=== PATIENT | female | born 1990 | race Caucasian/White ===

== ENCOUNTER 2016-09-06 14:18 | Emergency (ER) | payer OTHER ==
[~2016-09-06] VITALS: Ht 160 cm; Wt 77.1 kg
[2016-09-06 14:55] VITALS: BP_SYST 123
[2016-09-06] MEDS ORDERED: ONDANSETRON HCL 4 MG/2 ML VIAL IVP ONE (15:30)
[2016-09-06] MEDS ORDERED: NACL 0.9% 1,000 ML IV ONE (15:30)
[2016-09-06] MEDS ORDERED: KETOROLAC TROMETHAMINE 30 MG VIAL IVP ONE (15:30)
[2016-09-06 15:42] LABS: BLOOD, URINE 3+ (NEGATIVE); CLARITY/URINE CLOUDY (CLEAR); GLUCOSE,URINE TRACE (NEGATIVE); KETONES,URINE 1+ (NEGATIVE); LEUKOCYTE ESTERASE ,URINE 1+ (NEGATIVE); NITRITE, URINE POSITIVE (NEGATIVE); PH,URINE 6.5 (5.0-8.0); PROTEIN URINE 3+ (NEGATIVE)
[2016-09-06 15:53] LABS: BILIRUBIN,URINE NEGATIVE (NEGATIVE)
[2016-09-06 15:57] LABS: COLOR,URINE RED (YELLOW)
[2016-09-06 16:26] LABS: MEAN CORPUSCULAR VOLUME 82 fL (79.0-98.0); WHITE BLOOD COUNT (AUTO) 4.4 K/uL (4.8-10.8)
[2016-09-06 16:28] LABS: RBC,URINE >100 /HPF (0-3)
[2016-09-06 16:29] LABS: BACTERIA,URINE MODERATE /HPF (None Seen); MUCUS,URINE None Seen /LPF (None Seen); URINE AMORPHOUS URATE 2+ /HPF (None Seen)
[2016-09-06 16:33] LABS: BASOPHILS % (AUTO) 0.6 % (0.0-2.0); EOSINOPHILS % (AUTO) 0.8 % (0.0-4.0); HEMATOCRIT 36.8 % (36-48); HEMOGLOBIN 12.8 g/dL (12.0-16.0); LYMPHOCYTES # (AUTO) 0.7 K/uL (1.0-5.5); LYMPHOCYTES % (AUTO) 16.7 % (20.5-51.5); MEAN CORPUSCULAR HEMOGLOBIN 29 pg (27-31); MEAN CORPUSCULAR HGB CONC 35 % (32-36); MONOCYTES # (AUTO) 0.4 K/uL (0.0-1.0); MONOCYTES % (AUTO) 9.5 % (1.7-9.3); NEUTROPHILS # (AUTO) 3.3 K/uL (1.8-7.7); NEUTROPHILS % (AUTO) 72.4 % (40.0-70.0); PLATELET COUNT (AUTO) 189 K/uL (130-430); RED BLOOD CELL COUNT(AUTO) 4.49 MIL/uL (4.2-6.2); RED CELL DISTRIBUTION WIDTH 12.2 % (9.0-15.0)
[2016-09-06 16:39] LABS: CALCIUM 9.2 mg/dL (8.4-11.0); CREATININE 0.5 mg/dL (0.55-1.30); POTASSIUM 3.5 mmol/L (3.5-5.1)
[2016-09-06 16:44] LABS: ALBUMIN 3.1 g/dL (3.4-4.8); TOTAL BILIRUBIN 0.4 mg/dL (0.0-1.0); TOTAL PROTEIN, SERUM 6.6 g/dL (6.4-8.3)
[2016-09-06] MEDS ORDERED: cefTRIAXone 1 GM IVPB PREMIX 50 ML IV ONE (16:45)
[2016-09-06 17:46] VITALS: BP_SYST 123
== END 2016-09-06 17:46 | disposition home or self-care (01) ==
LOC: SED 14:18
DX: N10 Acute pyelonephritis (principal); R51 Headache
CPT/HCPCS: 36415; 72131; 80053; 81000; 81025; 83690; 85025; 86710; 87086; 96361; 96365; 96375; 99285; J0696; J1885; J2405

== ENCOUNTER 2017-08-23 21:12 | Emergency (ER) | payer OTHER ==
[~2017-08-23] VITALS: Ht 160 cm; Wt 81.6 kg
--- NOTE | 2017-08-23 21:12 | NUR ---
EKG done during triage per chest pain protocol and shown to Dr. Veliz.
[2017-08-23 21:25] VITALS: BP_SYST 137
--- NOTE | 2017-08-23 22:28 | NUR ---
CALLED PT TO BE PLACED IN BED AND NO ANSWER
--- NOTE | 2017-08-23 22:54 | NUR ---
CALLED PT TO BE PLACED IN BED AND NO ANSWER
--- NOTE | 2017-08-23 23:20 | NUR ---
CALLED PT TO BE PLACED IN BED AND NO ANSWER FOR THE 3RD TIME. PT LWBS
== END 2017-08-23 23:20 | disposition left against medical advice (07) ==
LOC: SED 21:12
DX: R07.89 Other chest pain (principal); Z53.21 Procedure and treatment not carried out due to patient leaving prior to being seen by health care provider
CPT/HCPCS: 93005; 99281

== ENCOUNTER 2017-08-24 11:05 | Emergency (ER) | payer OTHER ==
[~2017-08-24] VITALS: Ht 160 cm; Wt 81.6 kg
[2017-08-24 11:22] VITALS: BP_SYST 114
--- NOTE | 2017-08-24 11:28 | NUR ---
EKG done in triage room, results given to Dr. Calles.
--- NOTE | 2017-08-24 12:40 | NUR ---
Off unit for xray, pt has not provided urine. States that she is not and consents to be shielded. Notified of risks for fetus, verbalized understanding.
[2017-08-24 12:41] LABS: BASOPHILS % (AUTO) 0.5 % (0.0-2.0); EOSINOPHILS # (AUTO) 0.3 K/uL (0.0-0.4); EOSINOPHILS % (AUTO) 4.6 % (0.0-4.0); HEMATOCRIT 43.2 % (36-48); LYMPHOCYTES # (AUTO) 1.6 K/uL (1.0-5.5); LYMPHOCYTES % (AUTO) 25.4 % (20.5-51.5); MEAN CORPUSCULAR HEMOGLOBIN 28 pg (27-31); MEAN CORPUSCULAR HGB CONC 32 % (32-36); MEAN CORPUSCULAR VOLUME 85 fL (79.0-98.0); MONOCYTES # (AUTO) 0.4 K/uL (0.0-1.0); MONOCYTES % (AUTO) 6.7 % (1.7-9.3); NEUTROPHILS # (AUTO) 3.9 K/uL (1.8-7.7); NEUTROPHILS % (AUTO) 62.8 % (40.0-70.0); PLATELET COUNT (AUTO) 328 K/uL (130-430); RED BLOOD CELL COUNT(AUTO) 5.09 MIL/uL (4.2-6.2); RED CELL DISTRIBUTION WIDTH 11.7 % (9.0-15.0); WHITE BLOOD COUNT (AUTO) 6.2 K/uL (4.8-10.8)
[2017-08-24 12:47] LABS: CALCIUM 10.8 mg/dL (8.4-11.0); CREATININE 0.57 mg/dL (0.55-1.30); POTASSIUM 3.8 mmol/L (3.5-5.1)
[2017-08-24 12:51] LABS: ALBUMIN 3.7 g/dL (3.4-4.8); TOTAL BILIRUBIN 0.5 mg/dL (0.0-1.0)
--- NOTE | 2017-08-24 13:48 | NUR ---
Placed in room 6. Placed on monitor worker, blood pressure machine and pulse oximeter. To gown for exam. Side rails up. Report given to Omid.
--- NOTE | 2017-08-24 13:50 | NUR ---
Pt presents to ER c/o intermittent L chest pain rated 4/10 per pt. Pt denies that pain radiates elsewhere, denies N/V/SOB. Pt shows no sign of acute distress, pt is not diaphoretic, respirations even and unlabored, speaking full sentences, AOX4, NKDA.
--- NOTE | 2017-08-24 14:00 | NUR ---
ER at bedside examining patient.
[2017-08-24 14:19] LABS: BILIRUBIN,URINE NEGATIVE (NEGATIVE); BLOOD, URINE 3+ (NEGATIVE); CLARITY/URINE HAZY (CLEAR); COLOR,URINE YELLOW (YELLOW); GLUCOSE,URINE NEGATIVE (NEGATIVE); KETONES,URINE NEGATIVE (NEGATIVE); LEUKOCYTE ESTERASE ,URINE NEGATIVE (NEGATIVE); NITRITE, URINE NEGATIVE (NEGATIVE); PH,URINE 6.5 (5.0-8.0); PROTEIN URINE NEGATIVE (NEGATIVE); UROBILINOGEN,URINE 0.2 (0.2-1.0)
[2017-08-24 14:30] LABS: BACTERIA,URINE FEW /HPF (None Seen); URINE AMORPHOUS PHOSPHATES 2+ /HPF (None Seen); WBC,URINE 0-3 /HPF (0-3)
[2017-08-24] MEDS ORDERED: ASPIRIN 81 MG TAB.CHEW PO ONE (14:45)
--- NOTE | 2017-08-24 14:55 | NUR ---
Dr. Calles at bedside speaking with pt on lab and diagnostic results.
[2017-08-24 15:02] VITALS: BP_SYST 121
--- NOTE | 2017-08-24 15:02 | NUR ---
Patient given written and verbal discharge instructions and verbalizes understanding. ER MD discussed with patient the results and treatment provided. Patient in stable condition. ID arm band removed. Rx of Motrin given. Patient educated on pain management and to follow up with PMD. Pain Scale 0/10. Opportunity for questions provided and answered. Medication side effect fact sheet provided.
== END 2017-08-24 15:02 | disposition home or self-care (01) ==
LOC: SED 11:05
DX: M94.0 Chondrocostal junction syndrome [Tietze] (principal)
CPT/HCPCS: 36415; 71045; 80053; 81000-TC; 84484; 85025; 93005; 99285

== ENCOUNTER 2017-09-22 12:58 | Emergency (ER) | payer OTHER ==
[~2017-09-22] VITALS: Ht 160 cm; Wt 81.2 kg
[2017-09-22 13:09] VITALS: BP_SYST 148
[2017-09-22 13:44] LABS: BILIRUBIN,URINE NEGATIVE (NEGATIVE); BLOOD, URINE 3+ (NEGATIVE); CLARITY/URINE CLEAR (CLEAR); COLOR,URINE YELLOW (YELLOW); GLUCOSE,URINE NEGATIVE (NEGATIVE); KETONES,URINE NEGATIVE (NEGATIVE); LEUKOCYTE ESTERASE ,URINE NEGATIVE (NEGATIVE); NITRITE, URINE NEGATIVE (NEGATIVE); PROTEIN URINE 1+ (NEGATIVE)
[2017-09-22 13:54] LABS: CALCIUM 11.1 mg/dL (8.4-11.0); CREATININE 0.65 mg/dL (0.55-1.30); POTASSIUM 3.8 mmol/L (3.5-5.1)
[2017-09-22 14:00] LABS: ALBUMIN 3.8 g/dL (3.4-4.8); TOTAL BILIRUBIN 0.4 mg/dL (0.0-1.0)
[2017-09-22] MEDS ORDERED: KETOROLAC TROMETHAMINE 60 MG/2 ML VIAL IM ONE (14:00)
[2017-09-22] MEDS ORDERED: DEXAMETHASONE SOD PHOSPHATE 10 MG/ML VIAL IM ONE (14:00)
[2017-09-22 14:01] LABS: HEMATOCRIT 44.4 % (36-48); HEMOGLOBIN 14.4 g/dL (12.0-16.0); MEAN CORPUSCULAR HEMOGLOBIN 28 pg (27-31); MEAN CORPUSCULAR HGB CONC 33 % (32-36); MEAN CORPUSCULAR VOLUME 85 fL (79.0-98.0); PLATELET COUNT (AUTO) 293 K/uL (130-430); RED BLOOD CELL COUNT(AUTO) 5.23 MIL/uL (4.2-6.2); RED CELL DISTRIBUTION WIDTH 11.7 % (9.0-15.0); WHITE BLOOD COUNT (AUTO) 12.8 K/uL (4.8-10.8)
[2017-09-22 14:14] LABS: BACTERIA,URINE FEW /HPF (None Seen); MUCUS,URINE None Seen /LPF (None Seen); WBC,URINE 0-3 /HPF (0-3)
[2017-09-22 14:41] LABS: BAND % (MANUAL) 11 % (0-6); BASOPHILS % (MANUAL) 0 % (0-2); EOSINOPHILS % (MANUAL) 2 % (0-7); LYMPHOCYTES % (MANUAL) 9 % (20-46); MONOCYTES % (MANUAL) 4 % (0-11)
[2017-09-22 14:48] LABS: STREPTOCOCCUS A SCREEN (RAPID) POSITIVE (NEGATIVE)
[2017-09-22 15:03] VITALS: BP_SYST 140
[2017-09-22 15:20] LABS: INFLUENZA A&B ANTIGEN SCREEN NEGATIVE FOR A & B (NEGATIVE)
== END 2017-09-22 15:03 | disposition home or self-care (01) ==
LOC: SED 12:58
DX: J02.0 Streptococcal pharyngitis (principal); B95.0 Streptococcus, group A, as the cause of diseases classified elsewhere; R03.0 Elevated blood-pressure reading, without diagnosis of hypertension
CPT/HCPCS: 36415; 80053; 81000; 81025; 85007; 85027; 86403; 86710; 96372; 99284; J1100; J1885

== ENCOUNTER 2018-03-28 19:30 | Emergency (ER) | payer OTHER ==
[~2018-03-28] VITALS: Ht 157.5 cm; Wt 81.2 kg
[2018-03-28 19:50] VITALS: BP_SYST 119
[2018-03-28 20:19] LABS: BILIRUBIN,URINE NEGATIVE (NEGATIVE); BLOOD, URINE 3+ (NEGATIVE); CLARITY/URINE CLEAR (CLEAR); COLOR,URINE YELLOW (YELLOW); GLUCOSE,URINE NEGATIVE (NEGATIVE); KETONES,URINE NEGATIVE (NEGATIVE); LEUKOCYTE ESTERASE ,URINE TRACE (NEGATIVE); NITRITE, URINE NEGATIVE (NEGATIVE); PH,URINE 5.5 (5.0-8.0); PROTEIN URINE 1+ (NEGATIVE)
[2018-03-28 20:25] LABS: BACTERIA,URINE MODERATE /HPF (None Seen)
[2018-03-28 21:15] VITALS: BP_SYST 120
== END 2018-03-28 21:15 | disposition home or self-care (01) ==
LOC: SED 19:30
DX: N39.0 Urinary tract infection, site not specified (principal); M25.551 Pain in right hip
CPT/HCPCS: 81000-TC; 81025; 87086; 99284

== ENCOUNTER 2018-04-20 15:02 | Emergency (ER) | payer OTHER ==
[~2018-04-20] VITALS: Ht 157.5 cm; Wt 79.4 kg
[2018-04-20 15:03] VITALS: BP_SYST 125
[2018-04-20] MEDS ORDERED: NACL 0.9% 1,000 ML IV ONE (15:14)
[2018-04-20] MEDS ORDERED: ONDANSETRON HCL 4 MG/2 ML VIAL IVP ONE (15:15)
[2018-04-20] MEDS ORDERED: ASPIRIN 81 MG TAB.CHEW PO ONE (15:15)
[2018-04-20 15:28] LABS: BILIRUBIN,URINE NEGATIVE (NEGATIVE); BLOOD, URINE 3+ (NEGATIVE); CLARITY/URINE CLEAR (CLEAR); COLOR,URINE YELLOW (YELLOW); GLUCOSE,URINE NEGATIVE (NEGATIVE); KETONES,URINE NEGATIVE (NEGATIVE); LEUKOCYTE ESTERASE ,URINE 1+ (NEGATIVE); NITRITE, URINE NEGATIVE (NEGATIVE); PROTEIN URINE NEGATIVE (NEGATIVE)
[2018-04-20 15:36] LABS: BACTERIA,URINE MODERATE /HPF (None Seen)
[2018-04-20 15:37] LABS: MUCUS,URINE 1+ /LPF (None Seen)
[2018-04-20 15:49] LABS: BASOPHILS % (AUTO) 0.5 % (0.0-2.0); EOSINOPHILS # (AUTO) 0.1 K/uL (0.0-0.4); EOSINOPHILS % (AUTO) 1.7 % (0.0-4.0); HEMATOCRIT 44.9 % (36-48); HEMOGLOBIN 14.7 g/dL (12.0-16.0); LYMPHOCYTES # (AUTO) 1.5 K/uL (1.0-5.5); LYMPHOCYTES % (AUTO) 19.4 % (20.5-51.5); MEAN CORPUSCULAR HEMOGLOBIN 28 pg (27-31); MEAN CORPUSCULAR HGB CONC 33 % (32-36); MEAN CORPUSCULAR VOLUME 84 fL (79.0-98.0); MONOCYTES # (AUTO) 0.5 K/uL (0.0-1.0); MONOCYTES % (AUTO) 6.5 % (1.7-9.3); NEUTROPHILS # (AUTO) 5.7 K/uL (1.8-7.7); NEUTROPHILS % (AUTO) 71.9 % (40.0-70.0); PLATELET COUNT (AUTO) 317 K/uL (130-430); RED BLOOD CELL COUNT(AUTO) 5.33 MIL/uL (4.2-6.2); RED CELL DISTRIBUTION WIDTH 12.5 % (9.0-15.0); WHITE BLOOD COUNT (AUTO) 7.8 K/uL (4.8-10.8)
[2018-04-20 16:00] LABS: CALCIUM 10.7 mg/dL (8.4-11.0); CREATININE 0.71 mg/dL (0.55-1.30); POTASSIUM 3.4 mmol/L (3.5-5.1)
[2018-04-20 16:04] LABS: PROTHROMBIN TIME 9.9 SECS (9.5-12.5)
[2018-04-20 16:05] LABS: ALBUMIN 3.6 g/dL (3.4-4.8); TOTAL BILIRUBIN 0.4 mg/dL (0.0-1.0)
[2018-04-20 16:37] VITALS: BP_SYST 127
== END 2018-04-20 16:36 | disposition home or self-care (01) ==
LOC: SED 15:02
DX: R07.89 Other chest pain (principal); F41.9 Anxiety disorder, unspecified; R03.0 Elevated blood-pressure reading, without diagnosis of hypertension
CPT/HCPCS: 36415; 71045; 80053; 81000; 81025; 82150; 82550; 83690; 84484; 85025; 85610; 85730; 87086; 93005; 96374; 99285; J2405

== ENCOUNTER 2019-03-03 14:21 | Emergency (ER) | payer OTHER ==
[~2019-03-03] VITALS: Ht 160 cm; Wt 77.1 kg
[2019-03-03 15:07] VITALS: BP_SYST 130
[2019-03-03 15:48] VITALS: BP_SYST 130
== END 2019-03-03 15:48 | disposition home or self-care (01) ==
LOC: SED 14:21
DX: H66.92 Otitis media, unspecified, left ear (principal); J02.9 Acute pharyngitis, unspecified
CPT/HCPCS: 99283

== ENCOUNTER 2019-04-21 09:37 | Emergency (ER) | payer OTHER ==
[~2019-04-21] VITALS: Ht 160 cm; Wt 77.1 kg
[2019-04-21 09:56] VITALS: BP_SYST 107
--- NOTE | 2019-04-21 10:32 | NUR ---
Patient to ER bed 6 to gown for evaluation. Side rails up.
--- NOTE | 2019-04-21 10:40 | NUR ---
Pt presents to ED c/o rash on face and ingrown toenail.
--- NOTE | 2019-04-21 10:45 | NUR ---
ER at bedside examining patient.
[2019-04-21 11:15] VITALS: BP_SYST 107
--- NOTE | 2019-04-21 11:15 | NUR ---
Patient given written and verbal discharge instructions and verbalizes understanding. ER MD discussed with patient the results and treatment provided. Patient in stable condition. ID arm band removed. Rx of KEFLEX,TRIAMCINOLONE,TRAMADOL given. Patient educated on pain management and to follow up with PMD. Pain Scale 2. Opportunity for questions provided and answered. Medication side effect fact sheet provided.
== END 2019-04-21 11:15 | disposition home or self-care (01) ==
LOC: SED 09:37
DX: L60.0 Ingrowing nail (principal)
CPT/HCPCS: 99283

== ENCOUNTER 2019-06-21 19:30 | Emergency (ER) | payer OTHER ==
[~2019-06-21] VITALS: Ht 160 cm; Wt 80.7 kg
[2019-06-21 19:49] VITALS: BP_SYST 132
--- NOTE | 2019-06-21 19:55 | NUR ---
Patient triaged and placed in waiting room. VSS and patient appears in no acute distress at this time. Accompanied by DAUGHTER , awaiting available bed, and MD notified of need for MSE.
--- NOTE | 2019-06-22 00:15 | NUR ---
Patient left without being seen. No further treatment provided. ER MD aware
--- NOTE | 2019-06-22 00:15 | NUR ---
Called pt in, no answer
== END 2019-06-22 00:15 | disposition left against medical advice (07) ==
LOC: SED 19:30
DX: M54.5 Low back pain (principal); M79.18 Myalgia, other site; Z53.21 Procedure and treatment not carried out due to patient leaving prior to being seen by health care provider
CPT/HCPCS: 36415; 86710; 99281

== ENCOUNTER 2019-08-20 15:58 | Emergency (ER) | payer OTHER ==
[~2019-08-20] VITALS: Ht 160 cm; Wt 77.1 kg
[2019-08-20 16:00] VITALS: BP_SYST 138
--- NOTE | 2019-08-20 16:00 | NUR ---
Patient triaged and placed in waiting room. VSS and patient appears in no acute distress at this time. Accompanied by DAUGHTER, awaiting available bed, and MD notified of need for MSE.
[2019-08-20] MEDS ORDERED: ACETAMINOPHEN 500 MG TABLET ONE (16:30)
--- NOTE | 2019-08-20 17:31 | NUR ---
ER Dr. ROONEY at bedside examining patient.
--- NOTE | 2019-08-20 17:40 | NUR ---
Patient presentes to ER C/O cough & body aches Patient A&Ox4, ambulatory to ER, afebrile, skin pink and warm, cough pain , denies N/V/D. Patient states she has cough, body aches, dizziness & fever since YESTERDAY.
[2019-08-20 18:06] VITALS: BP_SYST 141
--- NOTE | 2019-08-20 18:06 | NUR ---
Patient given written and verbal discharge instructions and verbalizes understanding. ER MD discussed with patient the results and treatment provided. Patient in stable condition. ID arm band removed. Rx of PROMETHAZINE & TAMIFLU given. Patient educated on pain management and to follow up with PMD. Pain Scale 5/10 tolerable . Opportunity for questions provided and answered. Medication side effect fact sheet provided.
== END 2019-08-20 18:06 | disposition home or self-care (01) ==
LOC: SED 15:58
DX: J10.1 Influenza due to other identified influenza virus with other respiratory manifestations (principal)
CPT/HCPCS: 36415; 86710; 99283

== ENCOUNTER 2019-11-08 19:41 | Emergency (ER) | payer OTHER ==
[~2019-11-08] VITALS: Ht 160 cm; Wt 83.9 kg
[2019-11-08 20:00] VITALS: BP_SYST 130
--- NOTE | 2019-11-08 20:00 | NUR ---
Patient to ER bed 7 to gown for evaluation. Side rails up.
--- NOTE | 2019-11-08 20:01 | NUR ---
Patient came to ER. C/O sore throat and right ear pain x 2 days. Patient states " called PMD, prescribed antibiotic, started it yesterday morning, still had fever and pain. " A/O,X4, sore throat, right ear pain, pain rate 9/10, No SOB, vss. Temp 97.5.
--- NOTE | 2019-11-08 20:05 | NUR ---
ER Dr. [place] at bedside examining patient.
[2019-11-08] MEDS: DEXAMETHASONE SOD PHOSPHATE 4 MG/ML VIAL IM ONE ×2 (20:16→20:28)
[2019-11-08] MEDS: KETOROLAC TROMETHAMINE 30 MG VIAL IM ONE ×2 (20:16→20:29)
[2019-11-08 20:41] VITALS: BP_SYST 130
--- NOTE | 2019-11-08 20:41 | NUR ---
Patient given written and verbal discharge instructions and verbalizes understanding. ER MD discussed with patient the results and treatment provided. Patient in stable condition. ID arm band removed. Rx of Naproxen and Prednisone given. Patient educated on pain management and to follow up with PMD. Pain Scale 5/10. Opportunity for questions provided and answered. Medication side effect fact sheet provided.
== END 2019-11-08 20:41 | disposition home or self-care (01) ==
LOC: SED 19:41
DX: J02.9 Acute pharyngitis, unspecified (principal)
CPT/HCPCS: 81025; 96372; 99284; J1100; J1885

== ENCOUNTER 2020-05-13 00:41 | Emergency (ER) | payer OTHER ==
--- NOTE | 2020-05-13 07:23 | NUR ---
SEE DOWNTIME CHARTING
[2020-05-14 14:46] LABS: BILIRUBIN,URINE 1+ (NEGATIVE); BLOOD, URINE 3+ (NEGATIVE); CLARITY/URINE SLIGHTLY CLOUDY (CLEAR); GLUCOSE,URINE NEGATIVE (NEGATIVE); KETONES,URINE TRACE (NEGATIVE); PH,URINE 5.5 (5.0-8.0); PROTEIN URINE 1+ (NEGATIVE)
[2020-05-14 14:47] LABS: LEUKOCYTE ESTERASE ,URINE NEGATIVE (NEGATIVE); NITRITE, URINE NEGATIVE (NEGATIVE); UROBILINOGEN,URINE 0.2 (0.2-1.0)
[2020-05-14 14:49] LABS: BACTERIA,URINE RARE /HPF (None Seen); COLOR,URINE ORANGE (YELLOW); RBC,URINE >100 /HPF (0-3); WBC,URINE 0-3 /HPF (0-3)
[2020-05-14 15:48] LABS: HEMOGLOBIN 13.7 g/dL (12.0-16.0); RED BLOOD CELL COUNT(AUTO) 4.87 MIL/uL (4.2-6.2)
[2020-05-14 15:49] LABS: BASOPHILS % (AUTO) 0.4 % (0.0-2.0); EOSINOPHILS # (AUTO) 0.1 K/uL (0.0-0.4); EOSINOPHILS % (AUTO) 1.3 % (0.0-4.0); HEMATOCRIT 41.8 % (36-48); LYMPHOCYTES # (AUTO) 2.3 K/uL (1.0-5.5); LYMPHOCYTES % (AUTO) 21.3 % (20.5-51.5); MEAN CORPUSCULAR HEMOGLOBIN 28 pg (27-31); MEAN CORPUSCULAR HGB CONC 33 % (32-36); MEAN CORPUSCULAR VOLUME 86 fL (79.0-98.0); MONOCYTES % (AUTO) 9.5 % (1.7-9.3); NEUTROPHILS # (AUTO) 7.3 K/uL (1.8-7.7); NEUTROPHILS % (AUTO) 67.5 % (40.0-70.0); PLATELET COUNT (AUTO) 318 K/uL (130-430); RED CELL DISTRIBUTION WIDTH 13.6 % (9.0-15.0)
[2020-05-14 15:50] LABS: WHITE BLOOD COUNT (AUTO) 10.9 K/uL (4.8-10.8)
[2020-05-14 15:51] LABS: ALBUMIN 3.6 g/dL (3.4-4.8); CALCIUM 10.6 mg/dL (8.4-11.0); CREATININE 0.91 mg/dL (0.55-1.30); POTASSIUM 3.6 mmol/L (3.5-5.1); TOTAL BILIRUBIN 0.2 mg/dL (0.0-1.0)
== END 2020-05-13 03:13 | disposition home or self-care (01) ==
LOC: SED 00:41
DX: N20.0 Calculus of kidney (principal); R10.31 Right lower quadrant pain
CPT/HCPCS: 36415; 76376; 80053; 81000-TC; 85025; 99284

== ENCOUNTER 2020-05-16 10:53 | Emergency (ER) | payer OTHER ==
[~2020-05-16] VITALS: Ht 160 cm; Wt 85.7 kg
[2020-05-16 10:53] VITALS: BP_SYST 159
--- NOTE | 2020-05-16 10:55 | NUR ---
BROUGHT BACK TO BED #6 AND TRIAGED. REPORT GIVEN TO CLARENCE
--- NOTE | 2020-05-16 10:58 | NUR ---
Patient arrived in the ED c/o left flank pain that started today. Patient was seen a couple of days ago with kidney stone on the right side. Denied any chest pain or shortness of breath. Denied any fevers, chills, nausea. Patient is alert and oriented x4, respirations even and unlabored, speaking in full sentences, and ambulating with a steady gait. VSS, pain level 10/10. Informed of the approximate wait time. Instructed to notify ED staff for any changes in condition or worsening of symptoms while waiting to be seen by an ED provider. Patient verbalized understanding.
--- NOTE | 2020-05-16 11:04 | NUR ---
Patient ambulated to the bathroom with a steady gait. Urine specimen collected as ordered by Dr. Powell.
--- NOTE | 2020-05-16 11:07 | NUR ---
ER Dr. Powell at bedside examining patient.
[2020-05-16] MEDS ORDERED: KETOROLAC TROMETHAMINE 30 MG VIAL IVP ONE (11:15)
[2020-05-16] MEDS ORDERED: NACL 0.9% 1,000 ML IV ONE (11:15)
--- NOTE | 2020-05-16 11:15 | NUR ---
# 20 gauge angiocath placed to RAC. Use of asceptic technique. Opsite placed over site. Blood return noted. Blood for lab drawn from site. Flushed with 10 cc of normal saline. No evidence of infiltration noted. Patient tolerated well.
[2020-05-16 11:20] LABS: BASOPHILS % (AUTO) 0.5 % (0.0-2.0); EOSINOPHILS # (AUTO) 0.2 K/uL (0.0-0.4); EOSINOPHILS % (AUTO) 2.2 % (0.0-4.0); HEMATOCRIT 43.8 % (36-48); HEMOGLOBIN 14.7 g/dL (12.0-16.0); LYMPHOCYTES # (AUTO) 2.2 K/uL (1.0-5.5); LYMPHOCYTES % (AUTO) 26.8 % (20.5-51.5); MEAN CORPUSCULAR HEMOGLOBIN 29 pg (27-31); MEAN CORPUSCULAR HGB CONC 34 % (32-36); MEAN CORPUSCULAR VOLUME 86 fL (79.0-98.0); MONOCYTES # (AUTO) 0.6 K/uL (0.0-1.0); MONOCYTES % (AUTO) 7.5 % (1.7-9.3); NEUTROPHILS # (AUTO) 5.2 K/uL (1.8-7.7); PLATELET COUNT (AUTO) 332 K/uL (130-430); RED CELL DISTRIBUTION WIDTH 13.5 % (9.0-15.0); WHITE BLOOD COUNT (AUTO) 8.3 K/uL (4.8-10.8)
--- NOTE | 2020-05-16 11:28 | NUR ---
Administered Toradol, Morphine sulfate and Zofran IVP as ordered by Dr. Powell. Patient tolerated the medications well. See eMAR for details.
[2020-05-16] MEDS ORDERED: MORPHINE 4 MG/ML INJ. SYRINGE IVP ONE ×2 (11:30→11:45)
[2020-05-16] MEDS ORDERED: ONDANSETRON HCL 4 MG/2 ML VIAL IVP ONE (11:30)
[2020-05-16 11:35] LABS: CALCIUM 10.9 mg/dL (8.4-11.0); CREATININE 0.75 mg/dL (0.55-1.30); POTASSIUM 3.4 mmol/L (3.5-5.1)
[2020-05-16 11:41] LABS: BILIRUBIN,URINE NEGATIVE (NEGATIVE); BLOOD, URINE 3+ (NEGATIVE); CLARITY/URINE HAZY (CLEAR); COLOR,URINE YELLOW (YELLOW); GLUCOSE,URINE NEGATIVE (NEGATIVE); KETONES,URINE NEGATIVE (NEGATIVE); LEUKOCYTE ESTERASE ,URINE NEGATIVE (NEGATIVE); NITRITE, URINE NEGATIVE (NEGATIVE); PROTEIN URINE NEGATIVE (NEGATIVE); UROBILINOGEN,URINE 0.2 (0.2-1.0)
[2020-05-16 11:45] LABS: BACTERIA,URINE FEW /HPF (None Seen); RBC,URINE 50-80 /HPF (0-3); WBC,URINE 0-3 /HPF (0-3)
[2020-05-16 11:46] LABS: CALCIUM OXALATE CRYSTALS,UR 0-10 /HPF (None Seen); MUCUS,URINE 1+ /LPF (None Seen)
--- NOTE | 2020-05-16 12:00 | NUR ---
Administered Morphine Sulfate 6mg IVP as ordered by Dr. Powell. Patient tolerated the medications well. See eMAR for details.
[2020-05-16 13:58] VITALS: BP_SYST 142
--- NOTE | 2020-05-16 13:58 | NUR ---
Patient given written and verbal discharge instructions and verbalizes understanding. ER MD discussed with patient the results and treatment provided. Patient in stable condition. ID arm band removed. IV catheter removed intact and dressing applied, no active bleeding. Rx of Hamlin given. Patient educated on pain management and to follow up with PMD. Pain Scale 0/10. Opportunity for questions provided and answered. Medication side effect fact sheet provided.
== END 2020-05-16 13:58 | disposition home or self-care (01) ==
LOC: SED 10:53
DX: N20.0 Calculus of kidney (principal); R10.9 Unspecified abdominal pain
CPT/HCPCS: 36415; 80048; 81000; 85025; 87086; 96361; 96374; 96375; 99284; J7030

== ENCOUNTER 2021-03-24 02:38 | Emergency (ER) | payer OTHER ==
[~2021-03-24] VITALS: Ht 160 cm; Wt 83.9 kg
--- NOTE | 2021-03-24 02:50 | NUR ---
Patient to ER bed 7 to gown for evaluation. Side rails up.
[2021-03-24 02:51] VITALS: BP_SYST 142
--- NOTE | 2021-03-24 02:59 | NUR ---
Dr. Vicente bedside for pt eval
--- NOTE | 2021-03-24 03:13 | NUR ---
Pt BIB family to ED C/O 1.5 days without BM, causing abd cramps and pain radiating down to her upper legs. Pt states of having hx of constipation VSS no s/s of acute distress Resting on gurney rails up
[2021-03-24] MEDS ORDERED: POLY17PO4 PO (03:39)
[2021-03-24 03:41] LABS: BILIRUBIN,URINE NEGATIVE (NEGATIVE); BLOOD, URINE 1+ (NEGATIVE); CLARITY/URINE CLOUDY (CLEAR); COLOR,URINE YELLOW (YELLOW); GLUCOSE,URINE NEGATIVE (NEGATIVE); KETONES,URINE NEGATIVE (NEGATIVE); LEUKOCYTE ESTERASE ,URINE NEGATIVE (NEGATIVE); NITRITE, URINE NEGATIVE (NEGATIVE); PH,URINE 7.5 (5.0-8.0); PROTEIN URINE NEGATIVE (NEGATIVE); UROBILINOGEN,URINE 0.2 (0.2-1.0)
[2021-03-24 03:49] LABS: BACTERIA,URINE FEW /HPF (None Seen); WBC,URINE 0-3 /HPF (0-3)
[2021-03-24 04:10] VITALS: BP_SYST 142
--- NOTE | 2021-03-24 04:10 | NUR ---
Patient given written and verbal discharge instructions and verbalizes understanding. ER MD discussed with patient the results and treatment provided. Patient in stable condition. ID arm band removed. Rx of Miralax given. Patient educated on pain management and to follow up with PMD. Pain Scale 0/10 Opportunity for questions provided and answered. Medication side effect fact sheet provided.
[2021-03-24] MEDS ORDERED: IBUPROFEN 600 MG TABLET PO ONE (04:15)
== END 2021-03-24 04:10 | disposition home or self-care (01) ==
LOC: SED 02:38
DX: K59.00 Constipation, unspecified (principal); Z79.899 Other long term (current) drug therapy
CPT/HCPCS: 81000; 81025; 99283

== ENCOUNTER 2021-07-07 07:48 | Emergency (ER) | payer OTHER, SELFPAY ==
[~2021-07-07] VITALS: Ht 162.6 cm; Wt 84.8 kg
[2021-07-07 07:48] VITALS: BP_SYST 148
[~2021-07-07 07:48] MED LIST: POLY17PO4 PO
--- NOTE | 2021-07-07 07:48 | NUR ---
BROUGHT BACK TO BED #5 AND TRIAGED. REPORT GIVEN TO DENILSON
--- NOTE | 2021-07-07 07:55 | NUR ---
DR RAMESH TO BEDSIDE FOR EVALUATION
[2021-07-07 09:01] LABS: BILIRUBIN,URINE NEGATIVE (NEGATIVE); BLOOD, URINE 2+ (NEGATIVE); CLARITY/URINE SL CLOUDY (CLEAR); COLOR,URINE YELLOW (YELLOW); GLUCOSE,URINE NEGATIVE (NEGATIVE); KETONES,URINE NEGATIVE (NEGATIVE); LEUKOCYTE ESTERASE ,URINE NEGATIVE (NEGATIVE); NITRITE, URINE NEGATIVE (NEGATIVE); PROTEIN URINE TRACE (NEGATIVE); UROBILINOGEN,URINE 0.2 (0.2-1.0)
[2021-07-07 09:11] LABS: BACTERIA,URINE FEW /HPF (None Seen); WBC,URINE 0-3 /HPF (0-3)
[2021-07-07] MEDS ORDERED: IBUPROFEN 800 MG TABLET PO ONE (09:15)
[2021-07-07 10:18] LABS: BASOPHILS % (AUTO) 0.4 % (0.0-2.0); EOSINOPHILS # (AUTO) 0.3 K/uL (0.0-0.4); EOSINOPHILS % (AUTO) 4.1 % (0.0-4.0); HEMOGLOBIN 13.1 g/dL (12.0-16.0); LYMPHOCYTES # (AUTO) 1.8 K/uL (1.0-5.5); LYMPHOCYTES % (AUTO) 21.5 % (20.5-51.5); MEAN CORPUSCULAR HEMOGLOBIN 27 pg (27-31); MEAN CORPUSCULAR HGB CONC 33 % (32-36); MEAN CORPUSCULAR VOLUME 83 fL (79.0-98.0); MONOCYTES # (AUTO) 0.7 K/uL (0.0-1.0); MONOCYTES % (AUTO) 8.8 % (1.7-9.3); NEUTROPHILS # (AUTO) 5.5 K/uL (1.8-7.7); NEUTROPHILS % (AUTO) 65.2 % (40.0-70.0); PLATELET COUNT (AUTO) 288 K/uL (130-430); RED BLOOD CELL COUNT(AUTO) 4.83 MIL/uL (4.2-6.2); RED CELL DISTRIBUTION WIDTH 12.8 % (9.0-15.0); WHITE BLOOD COUNT (AUTO) 8.4 K/uL (4.8-10.8)
[2021-07-07 10:34] LABS: CALCIUM 9.5 mg/dL (8.4-11.0); CREATININE 0.81 mg/dL (0.55-1.30); POTASSIUM 3.7 mmol/L (3.5-5.1)
[2021-07-07 10:40] LABS: ALBUMIN 3.1 g/dL (3.4-4.8); TOTAL BILIRUBIN 0.3 mg/dL (0.0-1.0)
[2021-07-07] MEDS ORDERED: HYDR-3921 PO (10:57)
[2021-07-07] MEDS ORDERED: IBUP-1969 PO (10:57)
[2021-07-07 11:09] VITALS: BP_SYST 122
--- NOTE | 2021-07-07 11:10 | NUR ---
Patient given written and verbal discharge instructions and verbalizes understanding. ER parrish CHADWICK discussed with patient the results and treatment provided. Patient in stable condition. ID arm band removed. Rx of motrin, hydrocodone given. Patient educated on pain management and to follow up with PMD. Pain Scale 2. Opportunity for questions provided and answered. Medication side effect fact sheet provided.
== END 2021-07-07 11:10 | disposition home or self-care (01) ==
LOC: SED 07:48
DX: N20.0 Calculus of kidney (principal); Z79.899 Other long term (current) drug therapy
CPT/HCPCS: 36415; 74150-TC; 76376; 80053; 81000; 81025; 83690; 85025; 99284

== ENCOUNTER 2021-07-08 09:05 | Emergency (ER) | payer OTHER, SELFPAY ==
[~2021-07-08] VITALS: Ht 162.6 cm; Wt 86.2 kg
[~2021-07-08 09:05] MED LIST changes: +HYDR-3921 PO; +IBUP-1969 PO
[2021-07-08 09:30] VITALS: BP_SYST 142
--- NOTE | 2021-07-08 09:30 | NUR ---
Patient to ER bed 6 to gown for evaluation. Side rails up. Report given to VANESA Márquez.
--- NOTE | 2021-07-08 09:35 | NUR ---
Dr Spicer at bedside to assess patient
--- NOTE | 2021-07-08 09:40 | NUR ---
Patient awake, alert and oriented x 3. Reported being seen here yesterday for "kidney stone"; returned today for being "cold" and intermittent nausea. Denies pain or nausea upon face to face assessment. UA sent. Awaits lab draw.
[2021-07-08 10:12] LABS: BILIRUBIN,URINE NEGATIVE (NEGATIVE); BLOOD, URINE 2+ (NEGATIVE); CLARITY/URINE CLEAR (CLEAR); COLOR,URINE YELLOW (YELLOW); GLUCOSE,URINE NEGATIVE (NEGATIVE); KETONES,URINE NEGATIVE (NEGATIVE); LEUKOCYTE ESTERASE ,URINE NEGATIVE (NEGATIVE); NITRITE, URINE NEGATIVE (NEGATIVE); PROTEIN URINE 1+ (NEGATIVE); UROBILINOGEN,URINE 0.2 (0.2-1.0)
[2021-07-08 10:18] LABS: BACTERIA,URINE FEW /HPF (None Seen); MUCUS,URINE 1+ /LPF (None Seen); WBC,URINE 0-3 /HPF (0-3)
[2021-07-08 10:54] VITALS: BP_SYST 142
--- NOTE | 2021-07-08 10:54 | NUR ---
Per Meka ALEXIS, pt james. Unknown what time she was noted gone due to critical patient in another room. No paperwork given. No dietary clerk noted to room. Patient stated prior to being not noted in room she felt like she "couldn't breathe." SpO2 98% on room air when assessed per RN.
== END 2021-07-08 10:54 | disposition left against medical advice (07) ==
LOC: SED 09:05
DX: N20.1 Calculus of ureter (principal); R11.0 Nausea; Z79.899 Other long term (current) drug therapy
CPT/HCPCS: 81000; 99283

== ENCOUNTER 2022-10-21 06:09 | Emergency (ER) | payer OTHER ==
[~2022-10-21] VITALS: Ht 160 cm; Wt 96.6 kg
[2022-10-21 06:23] VITALS: BP_SYST 152
--- NOTE | 2022-10-21 06:35 | NUR ---
PLACED IN RM3 CONNECTED TO BEDSIDE MONITOR AWAITING FOR MD TO BE EXAMINE.
--- NOTE | 2022-10-21 07:30 | NUR ---
RECEIVED PT FROM VANESA FERNANDEZ. PT SLEEPING BUT EASILY AROUSABLE. PT EDUCATED THAT A URINE SAMPLE IS NEEDED. PT VERBALIZED UNDERSTANDING. DENIES PAIN AT THIS TIME. PT PLACED ON MONITOR, SIDERAILS UP X2.
--- NOTE | 2022-10-21 07:37 | NUR ---
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 IVF RUNNING W/O COMPLICATION. PT DIFFICUL TO AROUSE. PRIMARILY W/ TACTILE STIMULI. PT STATES SHE TAKE NEURONTIN, AND XANAX. LATER ADMITS TO MORPHINE ALSO FOR FIBROMYALGIA, RX'D BY "MY PAIN DOCTOR". PT NOTED TO BE APATHETIC TOWARD HER CARE. REQUESTS ANALGESIA FOR RT ARM PAIN S/P FALL 1 WEEK AGO (TX'D BY PMD). REQUEST DENIED AT THIS TIME. INFORMED PT OF RATIONALE GIVEN SEDATED STATE W/ DIFFICULTY AROUSING. INFORMED PT OF CUMMULATIVE AFFECTS OF MEDS IN GENERAL. COMFORT MEASURES AND SUPPORTIVE CARE CONTINUED. AWAIT DIAGNOSTIC RESULTS AND DISPOSITION.
[2022-10-21 07:48] LABS: BASOPHILS # (AUTO) 0.1 K/uL (0.0-0.2); BASOPHILS % (AUTO) 0.7 % (0.0-2.0); EOSINOPHILS # (AUTO) 0.4 K/uL (0.0-0.4); EOSINOPHILS % (AUTO) 5.5 % (0.0-4.0); HEMATOCRIT 42.5 % (36-48); HEMOGLOBIN 13.8 g/dL (12.0-16.0); LYMPHOCYTES % (AUTO) 25.8 % (20.5-51.5); MEAN CORPUSCULAR HEMOGLOBIN 28 pg (27-31); MEAN CORPUSCULAR HGB CONC 32 % (32-36); MEAN CORPUSCULAR VOLUME 85 fL (79.0-98.0); MONOCYTES # (AUTO) 0.7 K/uL (0.0-1.0); MONOCYTES % (AUTO) 9.4 % (1.7-9.3); NEUTROPHILS # (AUTO) 4.6 K/uL (1.8-7.7); NEUTROPHILS % (AUTO) 58.6 % (40.0-70.0); PLATELET COUNT (AUTO) 286 K/uL (130-430); RED BLOOD CELL COUNT(AUTO) 5.01 MIL/uL (4.2-6.2); RED CELL DISTRIBUTION WIDTH 13.4 % (9.0-15.0); WHITE BLOOD COUNT (AUTO) 7.8 K/uL (4.8-10.8)
[2022-10-21 07:56] LABS: ANION GAP 7 (5-15); CALCIUM 9.9 mg/dL (8.4-11.0); CHLORIDE 106 mmol/L (98-107); CREATININE 0.65 mg/dL (0.55-1.30); GFR AFRICAN AMERICAN 134 mL/min (>90); GLUCOSE 91 mg/dL (70-99); UREA NITROGEN, BLOOD 15 mg/dL (8-21)
[2022-10-21 08:03] LABS: ALANINE AMINOTRANSFERASE 28 U/L (12-78); ALBUMIN 3.4 g/dL (3.4-4.8); ASPARTATE AMINOTRANSFERASE 14 U/L (10-37); TOTAL BILIRUBIN 0.3 mg/dL (0.0-1.0)
--- NOTE | 2022-10-21 08:30 | NUR ---
PT TAKEN FOR CT SCAN.
[2022-10-21] MEDS ORDERED: IBUP-1969 PO (09:15)
[2022-10-21] MEDS ORDERED: TRAM50TA2 PO (09:15)
--- NOTE | 2022-10-21 10:00 | NUR ---
DR. DE LEON AT BEDSIDE TO DISCUSS POC.
[2022-10-21 10:14] VITALS: BP_SYST 138
--- NOTE | 2022-10-21 10:22 | NUR ---
Patient given written and verbal discharge instructions and verbalizes understanding. ER MD discussed with patient the results and treatment provided. Patient in stable condition. ID arm band removed. Rx of IBUPROPHEN, TRAMADOL given. Patient educated on pain management and to follow up with PMD. Pain Scale 0/10. Opportunity for questions provided and answered. Medication side effect fact sheet provided.
== END 2022-10-21 10:22 | disposition home or self-care (01) ==
LOC: SED 06:09
DX: M54.12 Radiculopathy, cervical region (principal); R20.2 Paresthesia of skin; M25.512 Pain in left shoulder
CPT/HCPCS: 36415; 70450-TC; 71045; 76376; 80053; 81025; 84484; 85025; 99285

== ENCOUNTER 2022-12-30 09:59 | Emergency (ER) | payer OTHER ==
[~2022-12-30] VITALS: Ht 160 cm; Wt 90.7 kg
[~2022-12-30 09:59] MED LIST changes: +TRAM50TA2 PO
[2022-12-30 10:06] VITALS: BP_SYST 159; PULSE 92; RESP 18; TEMP 97.2; O2SAT 97
[2022-12-30 11:20] LABS: ANION GAP 7 (5-15); CALCIUM 9.4 mg/dL (8.4-11.0); CHLORIDE 106 mmol/L (98-107); GFR AFRICAN AMERICAN 147 mL/min (>90); GLUCOSE 113 mg/dL (74-106); UREA NITROGEN, BLOOD 7 mg/dL (8-21)
[2022-12-30 11:22] LABS: PROTHROMBIN TIME 9.9 SECS (9.5-12.5)
[2022-12-30 11:35] LABS: ALANINE AMINOTRANSFERASE 23 U/L (12-78); ALBUMIN 3.2 g/dL (3.4-4.8); TOTAL BILIRUBIN 0.2 mg/dL (0.0-1.0); URIC ACID 3.9 mg/dL (2.4-7.0)
[2022-12-30 11:37] LABS: BASOPHILS % (AUTO) 0.5 % (0.0-2.0); EOSINOPHILS # (AUTO) 0.2 K/uL (0.0-0.4); HEMOGLOBIN 14.1 g/dL (12.0-16.0); LYMPHOCYTES # (AUTO) 2.2 K/uL (1.0-5.5); LYMPHOCYTES % (AUTO) 28.4 % (20.5-51.5); MEAN CORPUSCULAR HEMOGLOBIN 27 pg (27-31); MEAN CORPUSCULAR HGB CONC 32 % (32-36); MEAN CORPUSCULAR VOLUME 85 fL (79.0-98.0); MONOCYTES # (AUTO) 0.7 K/uL (0.0-1.0); MONOCYTES % (AUTO) 9.5 % (1.7-9.3); NEUTROPHILS # (AUTO) 4.5 K/uL (1.8-7.7); NEUTROPHILS % (AUTO) 58.6 % (40.0-70.0); PLATELET COUNT (AUTO) 289 K/uL (130-430); RED CELL DISTRIBUTION WIDTH 13.5 % (9.0-15.0); WHITE BLOOD COUNT (AUTO) 7.8 K/uL (4.8-10.8)
[2022-12-30 11:43] LABS: ERYTHROCYTE SEDIMENTATION RATE 14 MM/HR (0-20)
[2022-12-30 11:47] LABS: ASPARTATE AMINOTRANSFERASE < 5 U/L (10-37)
[2022-12-30] MEDS ORDERED: IBUP-1969 PO (12:07)
[2022-12-30] MEDS ORDERED: TRAM50TA2 PO (12:07)
[2022-12-30 12:32] VITALS: BP_SYST 135; PULSE 74; RESP 18; TEMP 97.6; O2SAT 97
== END 2022-12-30 12:33 | disposition home or self-care (01) ==
LOC: SED 09:59
DX: G56.92 Unspecified mononeuropathy of left upper limb (principal); M25.552 Pain in left hip; R53.1 Weakness; R20.0 Anesthesia of skin; Z79.899 Other long term (current) drug therapy
CPT/HCPCS: 36415; 72170-TC; 80053; 81025; 84550; 84703; 85025; 85610-TC; 85651-TC; 85730-TC; 99284

== ENCOUNTER 2023-04-10 05:49 | Emergency (ER) | payer OTHER ==
[~2023-04-10] VITALS: Ht 160 cm; Wt 90.7 kg
[2023-04-10 06:06] VITALS: BP_SYST 136; PULSE 95; RESP 16; TEMP 98.4; O2SAT 97
[2023-04-10 07:24] LABS: BILIRUBIN,URINE 1+ (NEGATIVE); BLOOD, URINE 3+ (NEGATIVE); CLARITY/URINE CLEAR (CLEAR); COLOR,URINE YELLOW (YELLOW); GLUCOSE,URINE NEGATIVE (NEGATIVE); KETONES,URINE NEGATIVE (NEGATIVE); LEUKOCYTE ESTERASE ,URINE NEGATIVE (NEGATIVE); NITRITE, URINE NEGATIVE (NEGATIVE); PROTEIN URINE 2+ (NEGATIVE)
[2023-04-10 07:38] LABS: BACTERIA,URINE None Seen /HPF (None Seen); WBC,URINE 0-3 /HPF (0-3)
[2023-04-10 07:39] LABS: MUCUS,URINE 3+ /LPF (None Seen)
[2023-04-10] MEDS ORDERED: TRAM50TA2 PO (07:43)
[2023-04-10] MEDS ORDERED: NAPR-688 PO (07:43)
== END 2023-04-10 07:58 | disposition left against medical advice (07) ==
LOC: SED 05:49
DX: M54.50 Low back pain, unspecified (principal); M54.6 Pain in thoracic spine; Z79.899 Other long term (current) drug therapy
CPT/HCPCS: 81000; 81001; 81025; 99283